=== PATIENT | male | born 1960 | race Caucasian/White ===

== ENCOUNTER 2018-11-09 20:24 | Inpatient (IN) | payer OTHER, SELFPAY ==
[~2018-11-09] VITALS: Ht 170.2 cm; Wt 53.4 kg
[2018-11-09] MEDS ORDERED: SODIUM CHLORIDE FLUSH 10ML SYR IVF ONE (20:30)
[2018-11-09] MEDS ORDERED: TEMAZEPAM 15 MG CAPSULE PO PRN (22:30)
[2018-11-09] MEDS ORDERED: ONDANSETRON ODT 4 MG PO PRN (22:30)
[2018-11-09] MEDS ORDERED: ONDANSETRON 2MG/ML, 2ML IVPush PRN (22:30)
[2018-11-09] MEDS ORDERED: OXYcodone IR 5MG TABLET PO PRN (22:30)
[2018-11-09] MEDS: NICOTINE 14MG/24 HR PATCH.TD24 TD SCH (22:30)
[2018-11-09 22:44] LABS: BASOPHILS % (AUTO) 0 % (0-1); EOSINOPHILS % (AUTO) 1 % (1-7); LYMPHOCYTES # (AUTO) 0.85 x10^3/uL (1-3.4); LYMPHOCYTES % (AUTO) 6 % (22-44); MD NO; MEAN CORPUSCULAR HEMOGLOBIN 33.8 pg (27.5-34.5); MEAN CORPUSCULAR HGB CONC 34.8 g/dL (33.2-36.2); MEAN CORPUSCULAR VOLUME 97.3 fL (81-97); MEAN PLATELET VOLUME 7.4 fL (7.4-10.4); MONOCYTES # (AUTO) 0.62 x10^3/uL (0.2-0.8); MONOCYTES % (AUTO) 5 % (2-9); NEUTROPHILS # (AUTO) 11.76 x10^3/uL (1.8-6.8); NEUTROPHILS % (AUTO) 88 % (42-75); PLATELET COUNT 261 x10^3/uL (130-400); RED CELL DISTRIBUTION WIDTH 13.6 % (9.4-14.8)
[2018-11-09 22:50] LABS: ANION GAP 14 mmol/L (5-15); CALCIUM 8.4 mg/dL (8.5-10.1); CHLORIDE 104 mmol/L (98-107); CREATININE 1.01 mg/dL (0.7-1.3)
[2018-11-09 23:11] VITALS: BP 177/108
[2018-11-09] MEDS: ACETAMINOPHEN 325 MG TABLET PO PRN (23:42)
[2018-11-09] MEDS: morphine SULFATE 10 MG/ML, 1ML IVPush PRN (23:42)
[2018-11-10] MEDS: D5%-0.45NACL+KCL 20MEQ 1,000 ML IV SCH ×2 (00:10→16:16)
[2018-11-10] MEDS: morphine SULFATE 10 MG/ML, 1ML IVPush PRN (00:51)
[2018-11-10 00:58] VITALS: BP 144/86
[2018-11-10] MEDS: ACETAMINOPHEN 325 MG TABLET PO PRN ×4 (05:42→21:11)
[2018-11-10 06:00] LABS: BASOPHILS # (AUTO) 0.01 x10^3/uL (0-0.1); BASOPHILS % (AUTO) 0 % (0-1); EOSINOPHILS # (AUTO) 0.01 x10^3/uL (0-0.4); EOSINOPHILS % (AUTO) 0 % (1-7); LYMPHOCYTES # (AUTO) 1.39 x10^3/uL (1-3.4); LYMPHOCYTES % (AUTO) 13 % (22-44); MD NO; MEAN CORPUSCULAR HEMOGLOBIN 33.4 pg (27.5-34.5); MEAN CORPUSCULAR HGB CONC 34.6 g/dL (33.2-36.2); MEAN CORPUSCULAR VOLUME 96.6 fL (81-97); MEAN PLATELET VOLUME 7.5 fL (7.4-10.4); MONOCYTES % (AUTO) 7 % (2-9); NEUTROPHILS # (AUTO) 8.61 x10^3/uL (1.8-6.8); NEUTROPHILS % (AUTO) 80 % (42-75); PLATELET COUNT 231 x10^3/uL (130-400); RED BLOOD COUNT 4.47 x10^6/uL (4.38-5.82); RED CELL DISTRIBUTION WIDTH 13.6 % (9.4-14.8)
[2018-11-10 06:09] LABS: ALBUMIN 3.4 g/dL (3.4-5.0); ANION GAP 12 mmol/L (5-15); CALCIUM 7.9 mg/dL (8.5-10.1); CHLORIDE 107 mmol/L (98-107)
[2018-11-10 06:14] LABS: ALANINE AMINOTRANSFERASE 25 U/L (12-78); ALKALINE PHOSPHATASE 58 U/L (45-117); BILIRUBIN,TOTAL 0.4 mg/dL (0.2-1.0); CREATININE 0.81 mg/dL (0.7-1.3); TOTAL PROTEIN 6.6 g/dL (6.4-8.2)
[2018-11-10] MEDS ORDERED: MIDAZOLAM 1 MG/ML, 2ML ONE (06:28)
[2018-11-10] MEDS ORDERED: FENTANYL PF 250 MCG/5ML ONE (06:28)
[2018-11-10] MEDS ORDERED: CEFAZOLIN 1,000 MG ONE (06:31)
[2018-11-10] MEDS ORDERED: GLYCOPYRROLATE 0.2MG/1ML, 5ML ONE (06:31)
[2018-11-10] MEDS ORDERED: PROPOFOL 10 MG/ML, 20ML ONE (06:31)
[2018-11-10] MEDS ORDERED: NEOSTIGMINE 1 MG/ML, 10ML ONE (06:31)
[2018-11-10] MEDS ORDERED: ROCURONIUM 10MG/ML,5ML ONE (06:31)
[2018-11-10] MEDS ORDERED: OXYcodone 5 MG/5 ML ORAL.SOL UDC PO PRN (07:00)
[2018-11-10] MEDS ORDERED: HALOPERIDOL 5 MG/ML IV PRN (07:00)
[2018-11-10] MEDS ORDERED: LABETALOL 5MG/ML, 20ML IV PRN (07:00)
[2018-11-10] MEDS ORDERED: hydrALAzine 20 MG/ML, 1ML IV PRN (07:00)
[2018-11-10] MEDS ORDERED: PROMETHAZINE 25 MG/ML, 1ML IV PRN (07:00)
[2018-11-10] MEDS ORDERED: MORPHINE SULFATE 4 MG/ML, 1ML IVPush PRN (07:00)
[2018-11-10] MEDS ORDERED: MEPERIDINE/PF 25MG/0.5ML IVPush PRN (07:00)
[2018-11-10] MEDS ORDERED: ACETAMINOPHEN 325 MG TABLET PO PRN (07:00)
[2018-11-10] MEDS ORDERED: PROMETHAZINE 25 MG/ML, 1ML IM PRN ×2 (07:00)
[2018-11-10] MEDS ORDERED: PROMETHAZINE 12.5 MG SUPP PR PRN (07:00)
[2018-11-10] MEDS ORDERED: ONDANSETRON 2MG/ML, 2ML IV PRN (07:00)
[2018-11-10] MEDS ORDERED: PROMETHAZINE 25 MG SUPP PR PRN (07:00)
[2018-11-10] MEDS ORDERED: ONDANSETRON ODT 8 MG PO PRN (07:00)
[2018-11-10] MEDS: FAMOTIDINE 20 MG/2 ML IVPush SCH ×2 (07:29→21:00)
[2018-11-10] MEDS ORDERED: CEFAZOLIN PMX 1GM/50ML 50 ML IV SCH (08:30)
[2018-11-10] MEDS ORDERED: ACETAMINOPHEN 650 MG/20.3 ML UDC ONE (08:32)
[2018-11-10] MEDS ORDERED: FENTANYL PF 100 MCG/2ML ONE (08:32)
[2018-11-10] MEDS ORDERED: OXYcodone 5 MG/5 ML ORAL.SOL UDC ONE (08:32)
[2018-11-10] MEDS: FENTANYL PF 100 MCG/2ML IV PRN ×2 (08:35→08:40)
[2018-11-10] MEDS ORDERED: HYDROmorphone 2 MG/ML, 1ML ONE (08:49)
[2018-11-10] MEDS: HYDROmorphone 2 MG/ML, 1ML IVPush PRN ×2 (08:50→09:02)
[2018-11-10 13:30] VITALS: BP 151/85
[2018-11-10 19:48] VITALS: BP 167/94
[2018-11-10] MEDS: NICOTINE 14MG/24 HR PATCH.TD24 TD SCH (21:11)
[2018-11-11] MEDS ORDERED: CEFAZOLIN PMX 1GM/50ML 50 ML IV ONE (00:17)
[2018-11-11] MEDS ORDERED: LABETALOL 20 MG/4 ML ONE (01:29)
[2018-11-11] MEDS: LABETALOL 5MG/ML, 20ML IVPush PRN ×3 (01:36→06:32)
[2018-11-11] MEDS: morphine SULFATE 10 MG/ML, 1ML IVPush PRN ×2 (01:48→02:37)
[2018-11-11 06:13] VITALS: BP 195/106
[2018-11-11] MEDS ORDERED: hydrALAzine 20 MG/ML, 1ML IV ONE (07:00)
[2018-11-11 07:17] VITALS: BP 168/96
[2018-11-11] MEDS: D5%-0.45NACL+KCL 20MEQ 1,000 ML IV SCH ×2 (08:00→21:20)
[2018-11-11] MEDS: FAMOTIDINE 20 MG/2 ML IVPush SCH ×2 (08:58→20:25)
[2018-11-11] MEDS: ENOXAPARIN 40 MG/0.4 ML SQ SCH (08:59)
[2018-11-11] MEDS: ACETAMINOPHEN 325 MG TABLET PO PRN ×3 (09:05→20:25)
[2018-11-11 13:57] VITALS: BP 178/112
[2018-11-11] MEDS: hydrALAzine 20 MG/ML, 1ML IV PRN ×2 (14:03→18:11)
[2018-11-11] MEDS: DOCUSATE 100 MG CAPSULE PO PRN ×2 (16:46→20:25)
[2018-11-11 18:04] VITALS: BP 171/92
[2018-11-11] MEDS: NICOTINE 14MG/24 HR PATCH.TD24 TD SCH (22:30)
[2018-11-12 00:20] VITALS: BP 128/89
[2018-11-12 04:24] VITALS: BP 142/91
[2018-11-12 07:12] VITALS: BP 153/94
[2018-11-12] MEDS: ACETAMINOPHEN 325 MG TABLET PO PRN ×2 (08:57→13:33)
[2018-11-12] MEDS: ENOXAPARIN 40 MG/0.4 ML SQ SCH (08:57)
[2018-11-12] MEDS: D5%-0.45NACL+KCL 20MEQ 1,000 ML IV SCH (08:57)
[2018-11-12] MEDS: FAMOTIDINE 20 MG/2 ML IVPush SCH (08:57)
[2018-11-12] MEDS ORDERED: MAGNESIUM CITRATE 300ML ORAL SOL PO PRN (09:30)
[2018-11-12] MEDS ORDERED: ENOX40SY4 SQ (11:25)
[2018-11-12] MEDS ORDERED: GLYCERIN ADULT SUPP PR ONE (11:30)
[2018-11-12] MEDS ORDERED: ASPI-650 PO (13:31)
[2018-11-12 13:36] VITALS: BP 133/91
== END 2018-11-12 15:05 | disposition home or self-care (01) | DRG 494 ==
LOC: ED 21:38 → EDIP 21:40 → 4NOR 22:45
PROVIDERS: ADMIT Internal Medicine; ATTEND Internal Medicine
PROC: 0QSKXZZ Reposition Left Fibula, External Approach (ICD-10-PCS; 2018-11-09)
PROC: 0QSHXZZ Reposition Left Tibia, External Approach (ICD-10-PCS; 2018-11-09)
PROC: 2W6RXZZ Traction of Left Lower Leg (ICD-10-PCS; 2018-11-09)
PROC: 0QSH36Z Reposition Left Tibia with Intramedullary Internal Fixation Device, Percutaneous Approach (ICD-10-PCS; principal; 2018-11-10 07:00)
DX: S82.252A Displaced comminuted fracture of shaft of left tibia, initial encounter for closed fracture (principal); G89.11 Acute pain due to trauma; S82.832A Other fracture of upper and lower end of left fibula, initial encounter for closed fracture; I10 Essential (primary) hypertension; F12.10 Cannabis abuse, uncomplicated; F17.200 Nicotine dependence, unspecified, uncomplicated; F10.10 Alcohol abuse, uncomplicated; Y90.9 Presence of alcohol in blood, level not specified; W01.0XXA Fall on same level from slipping, tripping and stumbling without subsequent striking against object, initial encounter; Y93.01 Activity, walking, marching and hiking; Y92.89 Other specified places as the place of occurrence of the external cause; Y99.8 Other external cause status
CPT/HCPCS: 27825; 36415; 73590; 73610; 76000; 99285; J3490; 80048; 80053; 85025; C1713; G0378; J0690; J1170; J1650; J2250; J2704; J2710; J3010; J0360; J2270; J3480